=== PATIENT | male | born 1975 | race American Indian/Alaskan Native ===

== ENCOUNTER 2019-04-12 20:25 | Emergency (ER) | payer OTHER ==
[2019-04-12 20:47] VITALS: BP 144/86
[2019-04-12] MEDS ORDERED: BOOSTRIX IM ONE (20:51)
[2019-04-12] MEDS ORDERED: TYLENOL ONE (22:39)
[2019-04-12] MEDS ORDERED: TYLENOL PO ONE (22:39)
[2019-04-12] MEDS ORDERED: XYLOCAINE 2%/ EPI 1:200,000 INFILTRATI ONE (23:45)
[2019-04-12] MEDS ORDERED: HYDROGEN PEROXIDE TP ONE (23:56)
[2019-04-12] MEDS ORDERED: HYDROGEN PEROXIDE ONE (23:59)
[2019-04-13] MEDS ORDERED: XYLOCAINE 2%/ EPI 1:200,000 INFILTRATI ONE (00:01)
--- NOTE | 2019-04-13 00:54 | Emergency Department Report ---
- General Chief Complaint: Extremity Injury, Lower Stated Complaint: LEFT LEG LACERATION/WORKERS COMP Time Seen by Provider: 04/12/19 23:15 Source: patient Mode of arrival: Ambulatory Limitations: No Limitations - History of Present Illness Initial Comments: Patient is a 43-year-old male who presents to the emergency room with complaints of a laceration to his left anterior arrieta that occurred at 8:15 PM tonight. The patient states he was walking in front of a forklift and hit it against the front of the forklift where the two front metal levers are. He denies any pain in the leg. He states he just has pain where the cut is. he has been ambulatory without any difficulty. He states initially there was heavy bleeding but it has since resolved after coming to the emergency room and having gauze dressing placed. he is not sure when he had his last tetanus. - Related Data Previous Rx's Medication Instructions Recorded Last Taken Type Acetaminophen/Codeine [Tylenol 1 tab PO Q6H PRN #7 tab 04/13/19 Unknown Rx /Codeine # 3 tab] Allergies Allergy/AdvReac Type Severity Reaction Status Date / Time No Known Allergies Allergy Verified 04/12/19 20:50 ED Review of Systems ROS: Stated complaint: LEFT LEG LACERATION/WORKERS COMP Other details as noted in HPI Comment: All other systems reviewed and negative ED Past Medical Hx - Past Medical History Previous Medical History?: No - Surgical History Past Surgical History?: No - Social History Smoking Status: Current Some Day Smoker Substance Use Type: Alcohol - Medications Home Medications: Home Medications Medication Instructions Recorded Confirmed Last Taken Type Acetaminophen/Codeine [Tylenol 1 tab PO Q6H PRN #7 tab 04/13/19 Unknown Rx /Codeine # 3 tab] ED Physical Exam - General Limitations: No Limitations General appearance: alert, in no apparent distress - Head Head exam: Present: atraumatic, normocephalic - Eye Eye exam: Present: normal appearance - ENT ENT exam: Present: mucous membranes moist - Neurological Exam Neurological exam: Present: alert, oriented X3 - Psychiatric Psychiatric exam: Present: normal affect, normal mood - Skin Skin exam: Present: warm, other (7 cm laceration to the left anterior arrieta, no foreign body visualized, no tendon or muscle involvement, FROM of the LLE, karyn rovascularly intact) ED Course Vital Signs 04/12/19 04/13/19 20:45 01:23 Temperature 98.1 F Pulse Rate 57 L 62 Respiratory 16 18 Rate Blood Pressure 144/86 O2 Sat by Pulse 98 99 Oximetry - Laceration /Wound Repair Left Anterior Leg Wound Location: lower extremity (left anterior arrieta) Wound Length (cm): 7 Wound's Depth, Shape: superficial Wound Explored: clean Irrigated w/ Saline (ccs): 20 Betadine Prep?: Yes Volume Anesthetic (ccs): 4 (2% lido with epi) Wound Repaired With: sutures Suture Size/Type: 3:0, proline Number of Sutures: 7 Layer Closure?: Yes Deep Layer Suture Size/Type: 4:0 (vicryl) Number Deep Layer Sutures: 5 Sterile Dressing Applied?: Yes Progress: initially slow bleeding present, evaluated by Dr. Kelvin Freedman and placed surgicel, after Dr. Freedman placed the surgicel the bleeding resolved, I then proceeded with procedure, irrigated with saline, no foreign body palpated, no tendon/muscle involvement, betadine prep, sterile drapes applied, 4 cc of 2% lidocaine with epi used for anesthetic, layer closure with 4-0 vicryl, 5 sutures placed in an interrupted pattern, then superficial layer closed with 3-0 prolene, 7 sutures placed, pt tolerated well, bleeding controlled, no complications, sterile dressing applied ED Medical Decision Making - Medical Decision Making Patient is a 43-year-old male who presents to the emergency room with complaints of a laceration to his left anterior arrieta that occurred at 8:15 PM tonight. The patient states he was walking in front of a forklift and hit it against the front of the forklift where the two front metal levers are. He denies any pain in the leg. He states he just has pain where the cut is. he has been ambulatory without any difficulty. He states initially there was heavy bleeding but it has since resolved after coming to the emergency room and having gauze dressing placed. he is not sure when he had his last tetanus. on exam: 7 cm laceration to the left anterior arrieta, no foreign body visualized, no tendon or muscle involvement, FROM of the LLE, neurovascularly intact. laceration repaired per procedure note. advised pt to please keep area clean and dry. Wash with soap and water and immediately dry. Sutures will need to be removed in 10 days. follow up with primary care doctor in the next 3-5 days. Return to the emergency room for any new or worsening symptoms or any signs of infection. may return to the emergency room for suture removal. do not drive or operate heavy m achinery while taking pain medication. Critical care attestation.: If time is entered above; I have spent that time in minutes in the direct care of this critically ill patient, excluding procedure time. ED Disposition Clinical Impression: Laceration Disposition: [id number] TO HOME OR SELFCARE Is pt being admited?: No Does the pt Need Aspirin: No Condition: Stable Instructions: Suture Care (ED) Additional Instructions: Please keep area clean and dry. Wash with soap and water and immediately dry. Sutures will need to be removed in 10 days. follow up with primary care doctor in the next 3-5 days. Return to the emergency room for any new or worsening symptoms or any signs of infection. may return to the emergency room for suture removal. do not drive or operate heavy machinery while taking pain medication. Prescriptions: Acetaminophen/Codeine [Tylenol /Codeine # 3 tab] 1 tab PO Q6H PRN #7 tab PRN Reason: Pain , Severe (7-10) Referrals: MILLICENT ADAMS MD [Primary Care Provider] - 3-5 Days Time of Disposition: 00:54 Print Language: [id number]
== END 2019-04-13 01:23 | disposition home or self-care (01) ==
LOC: ED 20:25
DX: S81.812A Laceration without foreign body, left lower leg, initial encounter (principal); F17.200 Nicotine dependence, unspecified, uncomplicated; W23.0XXA Caught, crushed, jammed, or pinched between moving objects, initial encounter; Y93.01 Activity, walking, marching and hiking; Y92.488 Other paved roadways as the place of occurrence of the external cause; Y99.8 Other external cause status
CPT/HCPCS: 90715